=== PATIENT | female | born 1960 | race Caucasian/White ===

== ENCOUNTER 2023-06-13 08:30 | Outpatient (CLI) | payer OTHER | END 2023-06-13 08:32 | disposition home or self-care (01) | LOC: SONOGRAMA 08:30 | PROVIDERS: ATTEND Pathology Anatomic Pathology & Clinical Pathology | DX: D34 Benign neoplasm of thyroid gland (principal); E04.9 Nontoxic goiter, unspecified ==

== ENCOUNTER 2025-01-21 15:10 | Outpatient (CLI) | payer OTHER | END 2025-01-21 15:14 | disposition home or self-care (01) | LOC: SONOGRAMA 15:10 | PROVIDERS: ATTEND Pathology Anatomic Pathology | DX: D34 Benign neoplasm of thyroid gland (principal); E07.89 Other specified disorders of thyroid; E04.1 Nontoxic single thyroid nodule ==